=== PATIENT | female | born 1960 | race Caucasian/White ===

== ENCOUNTER 2020-07-22 15:15 | Day surgery (SDC) | payer OTHER ==
[~2020-07-22] VITALS: Ht 162.6 cm; Wt 96.5 kg
[~2020-07-22 15:15] MED LIST: ADV250INH INH; D31000TA2 PO; HYDR12CA PO; LEVOTAB10 PO; LOSA50TA88 PO; MONT10TA4 PO; MULTCAP PO; NS 1,000 ML IV SCH; TAMO20TA8 PO
[2020-07-22] MEDS ORDERED: propofoL 200 MG/20 ML VIAL As Ordered ONE ×2 (16:15→16:26)
[2020-07-22] MEDS ORDERED: LIDOCAINE 2% 100MG/5ML SDV (FOR ANES.) As Ordered ONE (16:15)
[2020-07-22 16:50] VITALS: BP 123/61
--- NOTE | 2020-08-03 11:36 | ROOR ---
Patient Name: Carla King Procedure Date: 07/22/2020 3:11 PM Date of : 1960 Age: 60 Room: [facility] Gender: Female Note Status: Finalized Procedure: Colonoscopy Indications: High risk colon cancer surveillance: Personal history of colonic polyps, Incidental change in bowel habits noted Providers: Vinicius BOWENS MD Referring MD: LINDY LAST MD Requesting Provider: Medicines: Monitored Anesthesia Care Complications: No immediate complications. Procedure: Pre-Anesthesia Assessment: - The heart rate, respiratory rate, oxygen saturations, blood pressure, adequacy of pulmonary ventilation, and response to care were monitored throughout the procedure. The Colonoscope was introduced through the anus and advanced to the terminal ileum, with identification of the appendiceal orifice and IC valve. The colonoscopy was performed without difficulty. The patient tolerated the procedure well. The quality of the bowel preparation was good. Findings: The perianal and digital rectal examinations were normal. A diminutive polyp was found in the splenic flexure. The polyp was flat. The polyp was removed with a cold snare. Resection and retrieval were complete. Multiple small and large-mouthed diverticula were found in the sigmoid colon. Small Internal Hemorrhoids. The exam was otherwise without abnormality on direct and retroflexion views. Impression: - One diminutive polyp at the splenic flexure, removed with a cold snare. Resected and retrieved. - Diverticulosis in the sigmoid colon. - Small Internal Hemorrhoids. - The examination was otherwise normal on direct and retroflexion views. Recommendation: - Repeat colonoscopy in 5 years for surveillance. Vinicius Bowens MD Vinicius BOWENS MD 07/22/2020 4:32:09 PM Electronically signed by Vinicius BOWENS MD Number of Addenda: 0 Note Initiated On: 07/22/2020 3:11 PM Estimated Blood Loss: Estimated blood loss: none.
== END 2020-07-22 17:00 | disposition home or self-care (01) ==
LOC: M OPP 15:15
PROVIDERS: ATTEND Internal Medicine Gastroenterology
DX: Z12.11 Encounter for screening for malignant neoplasm of colon (principal); Z86.010 Personal history of colon polyps; D12.3 Benign neoplasm of transverse colon; K57.30 Diverticulosis of large intestine without perforation or abscess without bleeding; K64.8 Other hemorrhoids; Z79.899 Other long term (current) drug therapy; Z88.8 Allergy status to other drugs, medicaments and biological substances; Z85.3 Personal history of malignant neoplasm of breast; Z92.21 Personal history of antineoplastic chemotherapy

== ENCOUNTER → 2023-01-31 | Outpatient (REF) | payer OTHER ==
[~2023-01-31] MED LIST changes: -D31000TA2 PO; +LOSA50TA28 PO; -LOSA50TA88 PO; -MONT10TA4 PO; +MONT10TA97 PO; -NS 1,000 ML IV SCH; +VITA100093 PO
[2023-01-31 16:06] LABS: POTASSIUM SERUM 4.3 MMOL/L (3.5-5.1)
== END ==
LOC: M LAB REF 15:11
PROVIDERS: ATTEND Internal Medicine Nephrology
DX: N18.31 Chronic kidney disease, stage 3a (principal)